=== PATIENT | female | born 1970 | race Caucasian/White ===

== ENCOUNTER 2021-01-11 15:47 | Outpatient (REF) | payer MEDICAID, SELFPAY ==
--- NOTE | 2021-01-11 15:35 | PAPFT_PTH ---
PATIENT: Cayla Lai LOC: [facility] U#:[id number] AGE/SX: 50/F ROOM: RE01/11/[address]: Gretta Ricci : 1970 BED: DIS: 01/11/2021 SPEC #: [id number] RECD: 01/11/21 17:28 STATUS: ANKIT ORTEGA #: [id number] VEENA: 01/11/21 15:[address]: Gretta Ricci DEPT: [facility] Cytology RECD BY: Siri Barnard ENTERED: 01/11/21 17:28 SP TYPE: PAPFT OTHR DR: Esme Welsh Tissues: 1 - CX/ENDOCX FOR PAP SMEARS Procedures: PAP THIN PREP/UVM Screening HPV DNA PROBE Comments: [id number]
== END 2021-01-11 15:48 | disposition home or self-care (01) ==
LOC: LBN 15:47
PROVIDERS: PCP Nurse Practitioner Family; Visit Provider Obstetrics & Gynecology Gynecology
DX: Z12.4 Encounter for screening for malignant neoplasm of cervix (principal); Z11.51 Encounter for screening for human papillomavirus (HPV)
CPT/HCPCS: 88142; 87624

== ENCOUNTER 2021-01-26 01:53 | Outpatient (CLI) | payer MEDICAID, SELFPAY ==
--- NOTE | 2021-01-26 08:00 | DI.US_ITS ---
EXAM: US PELVIS TRANSVAGINAL CLINICAL HISTORY: enlarged uterus, pelvic pain,H/O UTERINE FIBROID,R10.2,Z86.018 TECHNIQUE: Ultrasound of the pelvis was performed both transabdominal and transvaginal. COMPARISON: US OB US 1ST TRIMESTER TRANSABD from 11/17/2008 US OB US 1ST TRIMESTER TRANSABD from 11/17/2008 FINDINGS: UTERUS: The uterus appears retroverted. Measures 8.3 cm length x 9 cm AP x 8.5 cm wide. There are no uterine fibroids.There is a large posterior myometrial fibroid near the region of the fu ndus which exhibits some internal calcification, this fibroid measuring approximately 8.5 x 6.7 x 5.1 cm. It contains an internal calcification measuring approximately 3.2 x 3.0 cm. Endometrial thickness measures 13 mm. There is no fluid in the endometrial canal. CERVIX: There are no obvious nabothian cysts. RIGHT OVARY: Measures 1 x 1.4 x 1.4 cm No significant cysts nor masses evident in the right ovary. LEFT OVARY: Measures 0.0 x 0.7 x 0.6 cm No significant cysts nor masses evident in the left ovary. CUL-DE-SAC: No free fluid evident. IMPRESSION: 1. There is a large partially calcified uterine fibroid posteriorly towards the fundus, measuring 8.5 x 6.7 x 5.1 cm, corresponding to fibroid seen at this [facility] 2. Endometrium is thickened and somewhat heterogeneous, this requiring close follow-up 3. No obvious abnormal adnexal masses. No free fluid. DATA REPOSITORY:
== END 2021-01-26 02:13 ==
PROVIDERS: Visit Provider Obstetrics & Gynecology Gynecology
DX: R10.2 Pelvic and perineal pain (principal); N85.2 Hypertrophy of uterus; D25.9 Leiomyoma of uterus, unspecified
CPT/HCPCS: 76830; 76856

== ENCOUNTER 2021-03-14 03:18 | Outpatient (CLI) | payer MEDICAID, SELFPAY ==
[2021-03-14 10:38] LABS: HCT 40.7 % (36.0-46.0); HGB 13.9 g/dL (11.2-15.7); MCH 29.3 pg (27.0-33.0); MCHC 34.2 % (32.0-36.0); MCV 85.7 fL (80-95); MPV 9.1 fL (8.0-11.0); Platelet Count 334 10^3/uL (130-400); RBC 4.75 10^6/uL (3.93-5.22); RDW 12.8 % (11.7-14.6); RDW-SD 40.3 fL; WBC 11.68 10^3/uL (4.4-10.8)
[2021-03-14 11:50] LABS: Anion Gap 10.4 mmol/L (3-11); BUN 17 mg/dL (7-18); CO2 25.6 mmol/L (21.0-32.0); CREATININE 0.8 mg/dL (0.55-1.02); Calcium 9.3 mg/dL (8.5-10.1); Chloride 106 mmol/L (98-107); Glucose 99 mg/dL (74-106); Potassium 4.1 mmol/L (3.5-5.1); Sodium 142 mmol/L (136-145)
[2021-03-14 12:20] LABS: Source Nasal/Nares
[2021-03-14 17:02] LABS: COVID-19 PCR Negative (Negative)
[2021-03-15 14:08] LABS: HCG Quant, Pregnancy 3 mIU/mL (1-3)
== END 2021-03-14 03:19 | disposition home or self-care (01) ==
LOC: LBO 03:18
PROVIDERS: Visit Provider Obstetrics & Gynecology Gynecology
DX: R10.2 Pelvic and perineal pain (principal); D25.1 Intramural leiomyoma of uterus; Z20.822 Contact with and (suspected) exposure to COVID-19; Z01.818 Encounter for other preprocedural examination; Z01.812 Encounter for preprocedural laboratory examination
CPT/HCPCS: 36415; 80048; 85027; 86850; 86900; 86901; 87635; 84702

== ENCOUNTER 2021-03-16 10:23 | Observation (INO) | payer MEDICAID, SELFPAY ==
[2021-03-16] VITALS (19 sets, daily range): BP systolic 85–130; BP diastolic 33–70; PULSE 62–79; RESP 10–18; TEMP 36.2–36.7; O2SAT 95–100; BMI 22.2
--- NOTE | 2021-03-16 06:00 | W.ANESPRE ---
General Info Height: 5 ft 2 in Weight: 56.302 kg Body Mass Index (BMI): 22.6 Surgical Procedure: Operation Date: 03/16/21 07:40 Proposed Procedures Side Surgeon p Hysterectomy Vaginal Laparoscopic Assist WITH SALPINGECTOMY , CYSTO Gretta Ricci MD Meds Allergies and Home Medications Allergies Allergy/AdvReac Type Severity Reaction Status Date / Time No Known Allergies Allergy Unverified 03/16/21 05:44 Home Medication Medication Instructions Recorded amoxicillin-pot clavulanate 1 tab PO TID 03/14/21 naproxen sodium [Aleve] 220 mg PO TID 03/14/21 Current Visit Medications: Current Medications Generic Name Dose Route Start Last Admin Trade Name Freq PRN Reason Stop Dose Admin Ringer's Solution 1,000 mls @ 125 mls/hr 03/16/21 06:00 IV 04/14/21 23:59 INFUSION ANN MARIE Cefazolin Sodium/Dextrose 2 gm in 50 mls @ 100 mls/hr 03/16/21 06:00 Ancef Duplex IVPB 04/14/21 23:59 PREOP ANN MARIE IV Miscellaneous Supplies 1 each 03/16/21 06:00 Iv Access IV 04/14/21 23:59 DIRECTED ANN MARIE Sodium Chloride 0 ml 03/16/21 06:00 Normal Saline Flush 10 Ml Syr IV 04/14/21 23:59 PRN PRN Sodium Chloride 0 ml 03/16/21 06:00 Normal Saline 10 Ml Vial IJ 04/14/21 23:59 DIRECTED PRN Sterile Water 0 ml 03/16/21 06:00 Water,Injection,Sterile 10 Ml Vial IJ 04/14/21 23:59 DIRECTED PRN PFSH Active Problems Active Problems: Problem Status Onset Code Encounter for gynecological examination Z01.419 Preop examination Z01.818 History of abnormal uterine bleeding Z87.42 Tobacco use Z72.0 History of uterine fibroid Z86.018 Pelvic pain R10.2 Medical History Medical History History of abnormal uterine bleeding longstanding heavy menses. 01/2021 amenorrheic x10mo. History of uterine fibroid 01/2021. Per pt report. U/S ordered Pelvic pain Tobacco use 01/2021. pre-contemplative stage of tobacco cessation. Surgical History Surgical History H/O tooth extraction developed in infection, pt. 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 Finished antibiotics 03/12/21 H/O tubal ligation Tobacco Smoking/Tobacco Use Status: Current every day Tobacco Type: cigarettes Smoking packs per day: 0.5 Smoking cigarettes per day: 10.0 Tobacco: How many years used: 30 Quit Status: not considering quitting Counseling given: counseling >3 minutes Alcohol Alcohol Intake: current Alcohol intake frequency: holidays/special occasions only Substance Use Substance use: Never Substance use type: does not use Prental History History 7 Para Hx # Term Pregnancies 3 Multiple births Hx # Pregnancies Ectopic pregnancies AB induced Hx Number of Living Children AB spontaneous Vital Signs and Lab Results Lab Results Blood Type / Crossmatch: Patient ABO/Rh O Positive 03/14/21 10:30 03/14/21 Antibody Screen Negative 03/14/21 10:30 03/14/21 Complete Blood Count: White Blood Count 11.68 10^3/uL (4.4-10.8) H 03/14/21 10:30 03/14/21 Red Blood Count 4.75 10^6/uL (3.93-5.22) 03/14/21 10:30 03/14/21 Hemoglobin 13.9 g/dL (11.2-15.7) 03/14/21 10:30 03/14/21 Hematocrit 40.7 % (36.0-46.0) 03/14/21 10:30 03/14/21 Platelet Count 334 10^3/uL (130-400) 03/14/21 10:30 03/14/21 Complete Metabolic Panel: Sodium Level 142 mmol/L (136-145) 03/14/21 10:30 03/14/21 Potassium Level 4.1 mmol/L (3.5-5.1) 03/14/21 10:03/14/21 Chloride Level 106 mmol/L (98-107) 03/14/21 10:30 03/14/21 Carbon Dioxide Level 25.6 mmol/L (21.0-32.0) 03/14/21 10:30 03/14/21 Blood Urea Nitrogen 17 mg/dL (7-18) 03/14/21 10:30 03/14/21 Creatinine 0.8 mg/dL (0.55-1.02) 03/14/21 10:30 03/14/21 Calcium Level 9.3 mg/dL (8.5-10.1) 03/14/21 10:30 03/14/21 Albumin 3.9 g/dL (3.4-5.0) 01/30/17 16:25 01/30/17 Glucose Level 99 mg/dL (74-106) 03/14/21 10:30 03/14/21 Liver Function Panel: Alanine Aminotransferase (ALT/SGPT) 17 U/L (12-78) 01/30/17 16:25 01/30/17 Aspartate Amino Transf (AST/SGOT) 14 U/L (15-37) L 01/30/17 16:25 01/30/17 Coagulation Panel: No Data to Display Cardiac Panel: No Data to Display Arterial Blood Gas: No Data to Display Venous Blood Gas: No Data to Display Pancreas Panel: No Data to Display Thyroid Panel: Thyroid Stimulating Hormone (TSH) 3.93 uIU/mL (0.358-3.74) H 04/03/18 14:45 04/03/18 Infectious Disease: Coronavirus (COVID-19)(PCR) Negative (Negative) 03/14/21 11:00 03/14/21 Coronavirus 2019 Source Nasal/nares 03/14/21 11:00 03/14/21 Blood Cultures: No Data to Display Toxicology Panel: No Data to Display Panel: Beta HCG, Quantitative 3 mIU/mL (1-3) 03/14/21 10:30 03/14/21 Imaging and Studies Imaging and Studies Stress Test Summary:: 2012: negative stress Anesthesia Assessment and Plan Anesthesia History Personal History: No History of Anesthesia Complications Family History: No Family History of Anesthesia Complications Exercise Tolerance Exercise Tolerance: Metabolic Equivalents>4 Cardiac & Pulmonary Exam Cardiac Exam: Normal S1/S2 Heart Sounds Pulmonary Exam: Clear Bilateral Breath Sounds Airway Exam Known Difficult Airway: No ASA Classification ASA Score: ASA 2 NPO Status NPO Status: NPO Clears >2 hours, Solids >8 hours Anesthesia Plan Anesthesia Technique: General Anesthesia Airway Planned: Endotracheal Tube Monitors Used: Standard Monitors
[2021-03-16] MEDS: Lactated Ringers 1,000 ML 125 ML IV ×3 (06:40→10:55)
--- NOTE | 2021-03-16 06:48 | ANES.PREOP_ITS ---
General Info Date of Service Date Performed: 03/16/21 Height: 5 ft 2 in Weight: 55.2 kg Body Mass Index (BMI): 22.2 Surgical Procedure: Operation Date: 03/16/21 07:40 Proposed Procedures Side Surgeon p Hysterectomy Vaginal Laparoscopic Assist WITH SALPINGECTOMY , CYSTO Gretta Ricci MD Meds Allergies and Home Medications Allergies Allergy/AdvReac Type Severity Reaction Status Date / Time No Known Allergies Allergy Unverified 03/16/21 05:44 Home Medication Medication Instructions Recorded amoxicillin-pot clavulanate 1 tab PO TID 03/14/21 naproxen sodium [Aleve] 220 mg PO TID 03/14/21 Current Visit Medications: Current Medications Generic Name Dose Route Start Last Admin Trade Name Freq PRN Reason Stop Dose Admin Ephedrine Sulfate 0 mg 03/16/21 06:06 Ephedrine 50 Mg/Ml Vial IVP DIRECTED PRN Hydromorphone HCl 0 mg 03/16/21 06:06 Hydromorphone 2 Mg/Ml Vial IVP DIRECTED PRN Ringer's Solution 1,000 mls @ 125 mls/hr 03/16/21 06:00 03/16/21 06:40 IV 04/14/21 23:59 125 mls/hr INFUSION ANN MARIE Administration Cefazolin Sodium/Dextrose 2 gm in 50 mls @ 100 mls/hr 03/16/21 06:00 Ancef Duplex IVPB 04/14/21 23:59 PREOP ANN MARIE Naloxone HCl 2 mg/ Sodium 500 mls @ 7.038 mls/hr 03/16/21 06:06 Chloride IV INFUSION PRN PRURITIS 0.5 MCG/KG/HR IV Miscellaneous Supplies 1 each 03/16/21 06:00 Iv Access IV 04/14/21 23:59 DIRECTED ANN MARIE Naloxone HCl 0 mg 03/16/21 06:06 Naloxone 0.4 Mg/Ml Vial IVP PRN PRN Naloxone HCl 0 mg 03/16/21 06:06 Naloxone 0.4 Mg/Ml Vial IVP 03/17/21 06:06 DIRECTED PRN Naloxone HCl 0.04 mg 03/16/21 06:06 Naloxone 0.4 Mg/Ml Vial IVP PRN PRN PRURITIS Sodium Chloride 0 ml 03/16/21 06:00 Normal Saline Flush 10 Ml Syr IV 04/14/21 23:59 PRN PRN Sodium Chloride 0 ml 03/16/21 06:00 Normal Saline 10 Ml Vial IJ 04/14/21 23:59 DIRECTED PRN Sterile Water 0 ml 03/16/21 06:00 Water,Injection,Sterile 10 Ml Vial IJ 04/14/21 23:59 DIRECTED PRN PFSH Active Problems Active Problems: Problem Status Onset Code Encounter for gynecological examination Z01.419 Preop examination Z01.818 History of abnormal uterine bleeding Z87.42 Tobacco use Z72.0 History of uterine fibroid Z86.018 Pelvic pain R10.2 Medical History Medical History History of abnormal uterine bleeding longstanding heavy menses. 01/2021 amenorrheic x10mo. History of uterine fibroid 01/2021. Per pt report. U/S ordered Pelvic pain Tobacco use 01/2021. pre-contemplative stage of tobacco cessation. Surgical History Surgical History H/O tooth extraction developed in infection, pt. 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 Finished antibiotics 03/12/21 H/O tubal ligation Tobacco Smoking/Tobacco Use Status: Current every day Tobacco Type: cigarettes Smoking packs per day: 0.5 Smoking cigarettes per day: 10.0 Tobacco: How many years used: 30 Quit Status: not considering quitting Counseling given: counseling >3 minutes Alcohol Alcohol Intake: current Alcohol intake frequency: holidays/special occasions only Substance Use Substance use: Never Substance use type: does not use Prental History History 7 Para Hx # Term Pregnancies 3 Multiple births Hx # Pregnancies Ectopic pregnancies AB induced Hx Number of Living Children AB spontaneous Vital Signs and Lab Results Vital Signs Most Recent Vital Signs in EMR: Most Recent Vital Signs Temp Pulse Resp BP Pulse Ox 36.3 C L 67 18 104/69 98 03/16/21 06:28 03/16/21 06:28 03/16/21 06:28 03/16/21 06:28 03/16/21 06:28 Lab Results Blood Type / Crossmatch: Patient ABO/Rh O Positive 03/14/21 10:30 03/14/21 Antibody Screen Negative 03/14/21 10:03/14/21 Complete Blood Count: White Blood Count 11.68 10^3/uL (4.4-10.8) H 03/14/21 10:03/14/21 Red Blood Count 4.75 10^6/uL (3.93-5.22) 03/14/21 10:03/14/21 Hemoglobin 13.9 g/dL (11.2-15.7) 03/14/21 10:03/14/21 Hematocrit 40.7 % (36.0-46.0) 03/14/21 10:03/14/21 Platelet Count 334 10^3/uL (130-400) 03/14/21 10:03/14/21 Complete Metabolic Panel: Sodium Level 142 mmol/L (136-145) 03/14/21 10:03/14/21 Potassium Level 4.1 mmol/L (3.5-5.1) 03/14/21 10:03/14/21 Chloride Level 106 mmol/L (98-107) 03/14/21 10:03/14/21 Carbon Dioxide Level 25.6 mmol/L (21.0-32.0) 03/14/21 10:03/14/21 Blood Urea Nitrogen 17 mg/dL (7-18) 03/14/21 10:03/14/21 Creatinine 0.8 mg/dL (0.55-1.02) 03/14/21 10:03/14/21 Calcium Level 9.3 mg/dL (8.5-10.1) 03/14/21 10:03/14/21 Albumin 3.9 g/dL (3.4-5.0) 01/30/17 16:01/30/17 Glucose Level 99 mg/dL (74-106) 03/14/21 10:03/14/21 Liver Function Panel: Alanine Aminotransferase (ALT/SGPT) 17 U/L (12-78) 01/30/17 16:25 01/30/17 Aspartate Amino Transf (AST/SGOT) 14 U/L (15-37) L 01/30/17 16:01/30/17 Coagulation Panel: No Data to Display Cardiac Panel: No Data to Display Arterial Blood Gas: No Data to Display Venous Blood Gas: No Data to Display Pancreas Panel: 2 No Data to Display Thyroid Panel: Thyroid Stimulating Hormone (TSH) 3.93 uIU/mL (0.358-3.74) H 04/03/18 14:45 04/03/18 Infectious Disease: Coronavirus (COVID-19)(PCR) Negative (Negative) 03/14/21 11:00 03/14/21 Coronavirus 2019 Source Nasal/nares 03/14/21 11:00 03/14/21 Blood Cultures: No Data to Display Toxicology Panel: No Data to Display Panel: Beta HCG, Quantitative 3 mIU/mL (1-3) 03/14/21 10:30 03/14/21 Imaging and Studies Imaging and Studies Stress Test Summary:: 2012: negative stress Anesthesia Assessment and Plan Anesthesia History Personal History: No History of Anesthesia Complications Family History: No Family History of Anesthesia Complications Exercise Tolerance Exercise Tolerance: Metabolic Equivalents>4 Pertinent Negatives Pertinent Negatives: No Symptoms of GERD, No Major Cardiovascular Symptoms or Complaints, No Major Pulmonary Symptoms or Complaints (+snores/ 1/2 smoker per day ) and No History of CVA/TIA (Herniated cervical disc ) Cardiac & Pulmonary Exam Cardiac Exam: Normal S1/S2 Heart Sounds Pulmonary Exam: Clear Bilateral Breath Sounds Airway Exam Known Difficult Airway: No Mallampati Class: 2 Mouth Opening: Narrow (< 3cm) Thyromental Distance: Less than 3 cm Neck Range of Motion: Full ROM Neck Circumference: Normal Teeth Condition: Loose or Chipped Tooth Numberin. Chipped 2. Chipped 3. Chipped 4. Chipped ASA Classification ASA Score: ASA 2 Emergency Case?: No NPO Status NPO Status: NPO Clears >2 hours, Solids >8 hours Status Status: Not Per Patient Anesthesia Plan Anesthesia Technique: General Anesthesia Airway Planned: Endotracheal Tube Pain Management: Intrathecal Analgesia Monitors Used: Standard Monitors
[2021-03-16] MEDS: ceFAZolin 2 GM/50 ML BAG IVPB (07:57)
[2021-03-16] MEDS: Bupivacaine 0.25% Pres-Free 30 ML VIAL (09:00)
--- NOTE | 2021-03-16 09:06 | UTER_PTH ---
PATIENT: Cayla Lai LOC: [facility] U#:[id number] AGE/SX: 50/F ROOM: OBS.306 RE03/16/[address]: Gretta Ricci : 1970 BED: A DIS: 03/17/2021 SPEC #: [id number] RECD: 03/16/21 12:39 STATUS: ANKIT REQ #: [id number] VEENA: 03/16/21 09:[address]: Gretta Ricci DEPT: Surgical Specimen RECD BY: Siri Barnard ENTERED: 03/16/21 12:40 SP TYPE: UTER OTHR DR: No Local Tissues: 1 - UTERUS W OR W/O OVARIES(NOT TUMOR/PROLAPSE) Procedures: GROSS AND MICRO LEVEL 5 DECALCIFICATION Comments: [id number]
--- NOTE | 2021-03-16 10:26 | ROE_ITS ---
Date of service: 03/16/21 Time of Service: 10:27 Operative Note Operative Note DATE OF PROCEDURE: 03/16/21 PRE-OP DIAGNOSIS: pelvic pain, dysmenorrhea, fibroid uterus POST-OP DIAGNOSIS: same PROCEDURE: laparoscopic assisted vaginal hysterectomy with salpingectomy. bladder cystoscopy SURGEON: Gretta Ricci MECHANICAL DEVELOPMENT ENGINEER: Jessica Ramirez ANESTHESIA TYPE: General LMA/ETT and Spinal Refer to Anesthesia Record ESTIMATED BLOOD LOSS: 400 PATHOLOGY: other (uterus, fallopian tube remnants) COMPLICATIONS: None Patient was transported to: PACU Patient's condition: stable Indications: 50yo s/p TL, with a documents enlarged uterus, uterine fibroid and pelvic pain. Findings: Enlarged uterus with fundal fibroid. Nl appearing ovaries. Remnants of fallopian fimbria attatched to surface of ovary. Procedure Description: Patient was taken to the operating room where she was placed in the sitting position and spinal anesthesia was administered. She received 2 g of Ancef prior to skin incision. She was then placed in the dorsal supine position and general endotracheal anesthesia was administered without difficulty. She was then [facility] in place. After being prepped and draped in the usual sterile fashion a surgical timeout was performed. Ospina catheter was placed to gravity drainage. A bivalve speculum was placed in the vagina the anterior lip of the cervix was grasped with a single-tooth tenaculum. A Genet uterine manipulator was successfully inserted into the uterine cavity, the catheter bulb inflated with 8 cc of normal saline and the device left in place. Attention was then turned to the patient's abdomen. The umbilical fold was infiltrated with quarter percent Marcaine without epinephrine. A scalpel was then used to make a 12mm vertical skin incision in the umbilical fold. Two penetrating towel clips were used to tent up the skin and through the periumbilical incision and a Veres needle was introduced into the abdomen with carbon dioxide as the distention medium. Intra-abdominal placement was confirmed by a drop in the intra-abdominal pressure. Once a pneumoperitoneum was established a 12 mm Visiport was placed under direct visualization and intra-abdominal placement confirmed by use of the laparoscope. Patient was then placed in Trendelenburg position. At two sites approximately 6 cm diagonally from the umbilical incision the skin was infiltrated with 1cc of 0.25% Marcaine without epinephrine, incised with a scalpel and two 5 mm lower ports were placed under direct visualization. After careful inspection of the pelvis a LigaSure electrocautery device was used to clamp, cauterize and transect the left fallopian tube remnant from its attachment to the surface of the left ovary. It was then delivered through the 12mm umbilical port. Left ovarian ligament was then similarly clamped cauterized and transected from its attachment to the body of the uterus. The left round ligament and broad ligament were then clamped, cauterized and transected to the level of the lower uterine segment. The vesico-uterine peritoneum was incised and the the from the lower uterine segment and mobilized off of the body of the cervix. The pedicles of the suspensory, round and broad ligaments were inspected and noted to be hemostatic. On the contralateral side the right fallopian tube remnant was clamped,cauterized and transected from the body of the R ovary. It was then delivered through the 12mm umbilical port. The ovarian ligament, round, and right broad ligaments were sequentially clamped, cauterized and transected using the Ligasure device to the level of the insertion of the uterine artery. The remaining the vesicouterine peritoneum was incised across the lower uterine segment and the bladder flap created using the Ligasure device and gentle counter traction. All pedicles were inspected and noted to be hemostatic. Decision was made to proceed with the vaginal portion of the case. Laparoscopic instruments were removed from the ports , the pneumoperitoneum was reduced, and the was abdomen covered with sterile drape. A weighted vaginal speculum was placed in the vagina and the anterior and posterior lips of the cervix were grasped with Magnus clamps. A solution of 1% lidocaine with dilute epinephrine was used to infiltrate the body of the cervix in a circumferential fashion followed by a circumferential incision of the cervical epithelium with Bovie electrocautery. The vesicouterine fascia was identified and the anterior cul-de-sac was entered using blunt and sharp disection. Through this incision a curved right angled retractor was inserted and used to retract the bladder away from the operative field. The posterior cul-de-sac was entered sharply and through the this incision a long billed weighted speculum was placed. The left and right uterosacral ligament complexes were identified clamped, transected and suture-ligated and the suture held long. The remaining right and left broad ligament attatchments were sequentially clamped, cauterized, and transected and the specimen was passed off of the operative field. All of the pedicle sites were inspected and were hemostatic. The vaginal cuff was reapproximated in a vertical fashion with an interrupted suture of 0 Vicryl. Instruments removed from the vagina and attention was again turned to the abdomen where a pneumoperitoneum was reestablished and the pelvis inspected using the laparoscope. The vaginal cuff was intact and was hemostatic as were the round ligament and broad ligament pedicles both at 15mmHg and when the pressure was temporarily reduced to 5mmHg. The instruments were removed from the port sites under direct visualization, the pneumoperitoneum reduced, and the ports removed. The fascia of the periumbilical skin incision was closed with interrupted suture of 0 Vicryl. The skin of all port site incisions were reapproximated with a subcuticular closure of 4-0 Monocryl and and covered with skin glue. A cystoscopy was performed with both ureteral jets patent with a brisk reflux of urine from each. The bladder was inspected and no evidence of sutures were present. Ospina catheter was reinserted to gravity drainage and the patient was placed in the dorsal supine position, awakened, extubated, and transported recovery area in stable condition. All sponge lap needle counts correct x2.
--- NOTE | 2021-03-16 11:14 | W.ANESPOSTOP ---
Postoperative Evaluation Date, Time and Location Date Performed: 03/16/21 Time Performed: 11:14 Patient Location: PACU Vital Signs Most Recent Imported Vital Signs: Most Recent Vital Signs Temp Pulse Resp BP Pulse Ox 36.2 C L 73 16 92/50 L 95 03/16/21 11:05 03/16/21 11:05 03/16/21 11:05 03/16/21 11:05 03/16/21 11:05 Assessment Mental Status: Awake (Alert & Oriented to Patient Baseline) Airway and Respiratory Function: Patent airway with normal (patient baseline) respiratory exam Cardiovascular Function: Hemodynamically Stable Hydration Status: Adequately Hydrated Nausea & Vomiting: No Nausea or Vomiting Pain: Pt. Denies Any Pain Peripheral Nerve Block: Patient did not receive a nerve block
[2021-03-16] MEDS: Ketorolac 30 MG/ML VIAL IVP ×2 (16:42→23:30)
[2021-03-16] MEDS: Nicotine 21 MG/24 HR PATCH TD (16:43)
[2021-03-16] MEDS: Normal Saline Flush 10 ML SYR IV (16:43)
--- NOTE | 2021-03-16 17:17 | NUR.NOTE ---
Nursing Note: 1155 - pt brought to floor via bed with mattress cover from PACU awake/drowsy, VSS
[2021-03-17 00:30] VITALS: BP 128/63; PULSE 76; RESP 16; TEMP 37.1; O2SAT 99
[2021-03-17 06:36] LABS: HCT 32.6 % (36.0-46.0); HGB 11.1 g/dL (11.2-15.7); MCH 29.1 pg (27.0-33.0); MCV 85.6 fL (80-95); MPV 9.3 fL (8.0-11.0); Platelet Count 279 10^3/uL (130-400); RBC 3.81 10^6/uL (3.93-5.22); RDW-SD 40.5 fL; WBC 20.55 10^3/uL (4.4-10.8)
[2021-03-17 08:10] VITALS: BP 116/70; PULSE 77; RESP 14; TEMP 37.2; O2SAT 98
[2021-03-17] MEDS: Docusate Sodium 100 MG CAP PO (08:19)
[2021-03-17] MEDS: Ibuprofen 600 MG TAB PO (09:39)
[2021-03-17 12:07] VITALS: BP 121/72; PULSE 76; RESP 16; TEMP 36.7; O2SAT 98
--- NOTE | 2021-03-17 12:37 | W.PM.DS.N ---
Date of service: 03/17/21 Time of Service: 12:38 DS: Diagnosis Discharge Diagnosis (1) History of laparoscopic-assisted vaginal hysterectomy: Status: Acute (2) H/O bilateral salpingectomy: Status: Acute (3) History of uterine fibroid: Status: Acute (4) Pelvic pain: Status: Acute (5) History of abnormal uterine bleeding: Status: Acute Discharge Plan Disposition Patient Disposition: HOME Condition: Fair Discharge Details Reason For Visit: LAPAROSCOPIC ASSISTED VAGINAL HYSTERECTOMY Admit Date/Time: 03/16/21 10:23 Admit Provider: Gretta Ricci Attending Provider: Gretta Ricci [facility] Course: Patient was admitted the morning of surgery and underwent a laparoscopic vaginal hysterectomy with bilateral salpingectomy. Her postop course was uncomplicated she was discharged home on postop day 1 tolerating a regular diet, voiding spontaneously with her pain well controlled with NSAIDs and Percocet. Final pathology of the uterus and fallopian tubes is currently pending. Plan is to have her follow-up in 2 weeks for postop check. She was given a prescription for Percocet 5/325 number 8 tablets with no refills for severe pain and ibuprofen 600 mg every 6 hours as needed for moderate pain. Home Meds and New Rx's Prescriptions: No Action oxycodone-acetaminophen [Percocet] 5-325 mg tablet 1 tab PO Q6H MDD 4 PRN (Reason: pain) Qty: 7 RF: 0 ibuprofen 600 mg tablet 600 mg PO Q6H PRN (Reason: pain) Qty: 60 RF: 0 amoxicillin-pot clavulanate 500-125 mg tablet 1 tab PO TID RF: 0 naproxen sodium [Aleve] 220 mg Tablet 220 mg PO TID RF: 0 Discharge Instructions Additional Instructions: No driving for 2 weeks. Limit her activities for the first 2 weeks with no lifting greater than 10 pounds. Nothing in the vagina until 6-week postop check. Prescription for Percocet and Motrin has been called into your pharmacy. Please call the office and have a 2-week postop check scheduled with Dr. Ricci. Stand Alone Forms: DSU Post Gynecology Surgery Activity:: Activity as Tolerated Equipment/Supplies:: No Equipment Needed Diet:: As Tolerated Discharge Orders Discharge Orders: Discharge Order (Routine); Ordered 03/17/21 Ordered By: Gretta Ricci DS: Summary Time Spent with Patient providing and/or coordinating discharge services: Less than 30 minutes Status at Discharge Functional status at discharge: independent ambulation Overall status at discharge: patient is progressing back to baseline Mental Status: mental status grossly normal Speech and Movement: speech and movement normal Mood: congruent mood Affect: normal affect Exam Const General: no acute distress Nutritional Appearance: average body habitus Orientation: alert, awake and oriented x3 Resp Effort & Inspection: normal respiratory effort Auscultation: clear to auscultation bilaterally Cardio Rate: regular rate Rhythm: regular rhythm GI Inspection: incision (Clean dry and intact. Skin glue in place) Palpation: soft, no hepatosplenomegaly, no guarding and no masses Auscultation: normal bowel sounds General: deferred Skin General skin exam: no rashes or lesions noted Extrem General: normal to inspection and full ROM Psych Appearance: grossly normal Mental Status: mental status grossly normal Speech and Movement: speech and movement normal Mood: congruent mood Affect: normal affect Attitude: cooperative DS: Data Vitals/I&O Vitals and I&O: Vital Signs Temperature 98.1 F 03/17/21 12:07 Temperature Source Oral 03/17/21 12:07 Pulse 76 03/17/21 12:07 Pulse Rhythm Regular 03/17/21 08:27 Respiratory Rate 16 03/17/21 12:07 Respiratory Effort Non-Labored 03/17/21 08:27 Respiratory Depth Normal 03/17/21 08:27 Respiratory Pattern Normal 03/17/21 08:27 Blood Pressure 121/72 03/17/21 12:07 Pulse Oximetry 98 03/17/21 12:07 Respiratory End-tidal CO2 39 03/16/21 11:05 Oxygen Delivery Method Room Air 03/17/21 12:07 Oxygen Flow Rate 0 03/17/21 12:07 Pain Level 0 03/17/21 12:07 Comment 03/17/21 12:07 Intake & Output 03/16/21 03/17/21 03/17/21 23:59 11:59 23:59 Intake Total 480 / 1880 940 / 940 Output Total 175 / 175 Balance 305 / 1705 940 / 940 Intake: IV 850 / 850 Oral 480 / 480 90 / 90 Output: Urine 175 / 175 Other: Urine Color Yellow Indigo Urine Appearance Clear Comment Pt voided an unmeasured amount of urine on toilet. Pt denies pain with urination. Voiding Methods Toilet Data Completed and Pending Labs on day of discharge: Labs from last 24 hours 03/17/21 06:29 WBC 20.55 H RBC 3.81 L Hgb 11.1 L D Hct 32.6 L MCV 85.6 MCH 29.1 MCHC 34.0 RDW 13.0 Plt Count 279 MPV 9.3 PFSH Medical History (Updated 03/17/21 @ 08:57 by Gretta Ricci MD) History of abnormal uterine bleeding longstanding heavy menses. 01/2021 amenorrheic x10mo. History of uterine fibroid 01/2021. Per pt report. U/S ordered Pelvic pain Tobacco use 01/2021. pre-contemplative stage of tobacco cessation. Surgical History (Updated 03/17/21 @ 12:40 by Gretta Ricci MD) H/O bilateral salpingectomy 03/16/21. At time of [facility]. H/O tooth extraction developed in infection, pt. 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 Finished antibiotics 03/12/21 H/O tubal ligation History of laparoscopic-assisted vaginal hysterectomy Family History (Updated 01/13/21 @ 19:55 by Gretta Ricci MD) Sister Cancer Leukemia-in remission Social History (Updated 01/13/21 @ 19:54 by Gretta Ricci MD) Smoking/Tobacco Use Status: Current every day Tobacco Type: cigarettes Smoking packs per day: 0.5 Smoking cigarettes per day: 10.0 Tobacco: How many years used: 30 Quit status: not considering quitting Counseling given: counseling >3 minutes Smoking risk assessment performed?: Yes Alcohol Intake: current Alcohol Intake frequency: holidays/special occasions only Drug use: Never Substance use type: does not use Household members: children and other Details: 26yo in [place], 24yo [place]. 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
== END 2021-03-17 13:45 | disposition home or self-care (01) ==
LOC: OBS 12:07
PROVIDERS: Admitting Provider Obstetrics & Gynecology Gynecology; Visit Provider Obstetrics & Gynecology Gynecology
PROC: 0UT9FZZ Resection of Uterus, Via Natural or Artificial Opening With Percutaneous Endoscopic Assistance (ICD-10-PCS; CPT 58552; principal; 2021-03-16 07:30)
DX: D25.1 Intramural leiomyoma of uterus (principal); R10.2 Pelvic and perineal pain; F17.210 Nicotine dependence, cigarettes, uncomplicated
CPT/HCPCS: 58552; 52000; 85027; 88307; 88311; J0690; J1100; J1885; J2001; J2250; J2405; J2704; J3010